=== PATIENT | male | born 1970 | race Caucasian/White ===

== ENCOUNTER 2021-11-14 21:16 | Emergency (ER) | payer OTHER, SELFPAY ==
--- NOTE | ~2021-11-14 | CT_ITS ---
EXAMINATION: Unenhanced CT the head; IV contrast enhanced CT angiography of the head and neck; delayed IV contrast-enhanced CT the head CLINICAL INFORMATION: Headache. Possible dissection vertebral artery. COMPARISON: None. TECHNIQUE: Routine unenhanced CT the head with multiple coronal and sagittal reformatted images; IV contrast enhanced CT angiography of the head and neck with multiple 3-D reformatted angiographic thick section MIPS images processed on the technologist workstation under concurrent supervision; delayed IV contrast-enhanced CT the head. Vascular stenoses are made with reference to the NASCET criteria less otherwise specified. This CT examination was performed using dose optimization techniques as appropriate, variously including the following: *Automated exposure control *Adjustment of mA and/or kV according to patient size (this includes techniques or standardized protocols for targeted exams where dose is matched to indication/reason for exam; i.e. extremities or head) *Use of iterative reconstruction technique Intravenous Contrast: Omnipaque 350 79 mL DLP: 2606 mGy-cm FINDINGS: Unenhanced and IV contrast enhanced CT of the head: A 0.7 cm hypodensity with sharply marginated contours is present inferiorly within the right lobe of the cerebellum and is suspicious for areas of chronic ischemic change. Mild diffuse commensurate prominence of ventricles and sulci is noted. Mild-moderate scattered subcortical and periventricular white matter patchy hypodensities are visualized. No intracranial hemorrhage, tumors or definitive acute infarcts visualized. The orbits and globes are normal in appearance. No significant opacification of the paranasal sinuses, mastoid air cells and middle ear cavities. No abnormal enhancement of the brain parenchyma. Normal intraluminal opacification of the major intrarenal dural sinuses. CT angiography neck: Common origin of the brachiocephalic and left common carotid arteries is noted. The carotid bulbs are patent. The vertebral arteries are codominant. No occlusions, stenoses or dissections of the cervical vertebral artery system are noted. CT angiography head: An anterior communicating artery is identified. No intracranial stenoses, occlusions or aneurysms are visualized. Mild straightening of normal cervical lordosis is noted. Mild altered level endplate osteophytosis is visualized. The visualized lung apices are clear. The thyroid is grossly normal in appearance. No prevertebral fluid collections or soft tissue inflammatory changes noted. CT/CT angio head neck IMPRESSION: Unenhanced and IV contrast-enhanced CT the head: *No acute intracranial abnormalities. *Chronic appearing lacunar infarct of the inferior right cerebellar hemisphere. *Moderate chronic microangiopathic ischemic changes. CT angiography neck: *No vascular dissections. No dissections of the cervical vertebral arteries. Patent carotid bulbs. *Incidental note made of common origin of the brachiocephalic and left common carotid arteries. CT angiography head: *No large vessel intracranial occlusions.
[2021-11-14 21:42] VITALS: BP 158/64; PULSE 72; RESP 20; TEMP 36.5; O2SAT 98; BMI 29.2
[2021-11-14 21:53] LABS: MANUAL DIFF FLAG NO
[2021-11-14 21:55] LABS: Basophils Absolute Auto 0.1 X10*3/uL (0.0-0.2); Basophils Percent Auto 0.8 % (0-2); Eosinophils Absolute Auto 0.1 X10*3/uL (0.0-0.4); Eosinophils Percent Auto 1.4 % (0-4); Hematocrit 42.4 % (42.0-52.0); Hemoglobin 14.6 g/dl (14.0-18.0); Imm Gran Abs Auto 0.01 X10*3/uL (0.00-0.03); Imm Gran Pct Auto 0.2 % (0.0-0.4); Lymphocytes Absolute Auto 2.1 X10*3/uL (1.2-4.9); Lymphocytes Percent Auto 32.7 % (20-40); Mean Corpuscular HGB Conc 34.4 g/dl (31.0-36.0); Mean Corpuscular Hemoglobin 31.1 pg (27.0-33.0); Mean Corpuscular Volume 90.2 fL (80.0-98.0); Mean Platelet Volume 9.5 fL (9.4-12.4); Monocytes Absolute Auto 0.7 X10*3/uL (0.1-1.2); Neutrophils Absolute Auto 3.5 x10*3/uL (2.0-8.3); Neutrophils Percent Auto 53.9 % (45-73); Platelet Count 177 X10*3/uL (160-400); Red Cell Distribution Width 12.4 % (11.0-16.0); White Blood Count 6.5 X10*3/uL (4.8-10.8)
[2021-11-14 22:14] LABS: Alanine Aminotransferase 15 U/L (0-40); Albumin Level 4.1 g/dL (3.5-5.0); Alkaline Phosphatase 92 U/L (39-117); Anion Gap 11 (12-20); Aspartate Amino Transferase 16 U/L (5-37); Bilirubin Total 0.3 mg/dL (0.0-1.0); Blood Urea Nitrogen 10 mg/dL (9-16); Calcium 8.7 mg/dL (8.4-10.2); Carbon Dioxide 28 mmol/L (22-29); Chloride 106 mmol/L (96-108); Creatinine Clr Calc Pharmacy 112.4; Estimated Glomerular Filt Rate > 60; Glucose Random 149 mg/dL (60-115); Potassium 3.7 mmol/L (3.3-5.1); Sodium 141 mmol/L (135-145); Total Protein 6.1 g/dL (6.5-8.0)
--- NOTE | 2021-11-14 22:41 | ED_ITS ---
HPI - Headache General Chief Complaint: Headache Stated Complaint: Headache Time Seen by Provider: 11/14/21 22:40 History of Present Illness HPI Narrative: Patient history of IBS was straining in the bathroom 3 days ago noticed headache the right side of the head since then headache is not gone away feel pain on the right side radiating to the neck no weakness no loss of vision has some floaters in the right eye after COVID last month no nausea no vomiting no weakness Related Data Previous Rx's Medication Instructions Recorded zfpoxdaezu-cnjuvjwwezzao-edfrpwpx 1 cap PO Q6H PRN headache #20 caps 11/15/21 50 mg-300 mg-40 mg capsule (Fioricet) Allergies Allergy/AdvReac Type Severity Reaction Status Date / Time chlorhexidine Allergy Rash Verified 11/14/21 21:41 doxycycline Allergy Anaphylaxis Verified 11/14/21 21:41 Review of Systems Review of Systems: Yes all other systems are reviewed and are negative [facility] Social History Social History Advance Directives: No Advance Directives Information Provided: No Physical Exam Vital Signs: Vital Signs: Last Vital Signs Temp 97.5 F 11/15/21 00:47 Pulse 54 11/15/21 00:47 Resp 16 11/15/21 00:47 BP 145/71 H 11/15/21 00:47 Pulse Ox 99 11/15/21 00:47 O2 Del Method 11/15/21 00:47 BMI result Body Mass Index 29.2 Appearance: Alert. Oriented X3. No acute distress. Eyes: PERRLA, No Nystagmus ENT: Pharynx normal. Oral Mucosa moist no temporal artery tenderness no scalp tenderness Neck: Normal inspection. Neck supple. No carotid bruit CVS: Normal heart rate and rhythm. Pulses normal. Respiratory: No respiratory distress. Equal air entry bilateral, no wheezing/rales/rhonchi Abdomen: Soft and nontender. Bowel sounds are present, no mass palpable, no CVA tenderness Skin: Skin warm and dry. Normal skin color. Normal skin turgor. Extremities: No lower extremity edema. No calf tenderness Neuro: Oriented X 3. No motor deficit. No sensory deficit.No cerebellar signs , cranial nerves II-XII intact MDM - Headache MDM Narrative Medical decision making narrative: CTA head neck negative for carotid/vertebral dissection or bleed headache likely from tension headache will give patient Fioricet and discharge patient home Differential Diagnosis Differential diagnosis: Likely migraine, tension headache and subarachnoid hemorrhage Lab Data Attestation: I reviewed the patient's lab results. Result diagrams: 11/14/21 21:49 11/14/21 21:49 Labs: Lab Results 11/14/21 11/14/21 Range/Units 21:49 21:49 WBC 6.5 (4.8-10.8) X10*3/uL RBC 4.70 (4.60-5.80) X10*6/uL Hgb 14.6 (14.0-18.0) g/dl Hct 42.4 (42.0-52.0) % MCV 90.2 (80.0-98.0) fL MCH 31.1 (27.0-33.0) pg MCHC 34.4 (31.0-36.0) g/dl RDW 12.4 (11.0-16.0) % Plt Count 177 (160-400) X10*3/uL MPV 9.5 (9.4-12.4) fL Immature Gran % (Auto) 0.2 (0.0-0.4) % Neut % (Auto) 53.9 (45-73) % Lymph % (Auto) 32.7 (20-40) % [place] % (Auto) 11.0 (2-11) % Eos % (Auto) 1.4 (0-4) % Baso % (Auto) 0.8 (0-2) % Lymph # (Auto) 2.1 (1.2-4.9) X10*3/uL [place] # (Auto) 0.7 (0.1-1.2) X10*3/uL Eos # (Auto) 0.1 (0.0-0.4) X10*3/uL Baso # (Auto) 0.1 (0.0-0.2) X10*3/uL Abs Immat Gran (auto) 0.01 (0.00-0.03) X10*3/uL Absolute Neuts (auto) 3.5 (2.0-8.3) x10*3/uL Absolute Nucleated RBC 0.000 (0.0-0.012) X10*3/uL Nucleated RBC % (auto) 0.0 (0.0-0.2) /100WBC Sodium 141 (135-145) mmol/L Potassium 3.7 (3.3-5.1) mmol/L Chloride 106 (96-108) mmol/L Carbon Dioxide 28 (22-29) mmol/L Anion Gap 11 L (12-20) BUN 10 (9-16) mg/dL Creatinine 1.04 (0.5-1.4) mg/dL Estim Creat Clear Calc 112.4 Estimated GFR > 60 Random Glucose 149 H (60-115) mg/dL Calcium 8.7 (8.4-10.2) mg/dL Total Bilirubin 0.3 (0.0-1.0) mg/dL AST 16 (5-37) U/L ALT 15 (0-40) U/L Alkaline Phosphatase 92 (39-117) U/L Total Protein 6.1 L (6.5-8.0) g/dL Albumin 4.1 (3.5-5.0) g/dL Discharge Plan Discharge Clinical Impression: Tension headache Patient Disposition: Home, Self-Care Instructions: Tension Headache (ED) Additional Instructions: Take pain medication as prescribed Follow with PCP if any concerns Prescriptions: New fjvwmmddtz-xkdokrmcuakee-tdov [Fioricet] 50-300-40 mg capsule 1 cap PO Q6H PRN (Reason: headache) Qty: 20 0RF
[2021-11-14 23:11] VITALS: BP 149/78; PULSE 58; O2SAT 98
[2021-11-15] MEDS: iohexoL 350 MG/ML 100 ML INFUS..BTL 70 ML IV (00:29)
[2021-11-15 00:47] VITALS: BP 145/71; PULSE 54; RESP 16; TEMP 36.4; O2SAT 99
[2021-11-15] MEDS: Ketorolac Tromethamine 30 MG/ML VIAL IVPUSH (01:08)
[2021-11-15] MEDS: Butalb/Acetamin/Caff 50/325/40 TABLET 1 TAB PO (01:50)
== END 2021-11-15 01:54 | disposition home or self-care (01) ==
PROVIDERS: Emergency Provider Internal Medicine; PCP Physician Assistant Medical
DX: G44.209 Tension-type headache, unspecified, not intractable (principal); Z79.899 Other long term (current) drug therapy
CPT/HCPCS: 36415; 70496; 70498; 80053; 85025; 96374; 99283; 99284; J1885; Q9967

== ENCOUNTER → 2022-05-17 14:03 | Outpatient (BNVA) | payer OTHER, BC, SELFPAY | PROVIDERS: PCP Physician Assistant Medical; Visit Provider Anesthesiology | DX: Z13.89 Encounter for screening for other disorder (principal) ==

== ENCOUNTER 2022-06-20 06:17 | Outpatient (REF) | payer OTHER, SELFPAY | END 2022-06-20 06:18 | disposition home or self-care (01) | LOC: CF 06:17 | PROVIDERS: Visit Provider Anesthesiology | DX: Z13.89 Encounter for screening for other disorder (principal) ==

== ENCOUNTER 2022-06-22 13:11 | Day surgery (SDC) | payer OTHER, SELFPAY ==
--- NOTE | ~2022-06-22 | FL_ITS ---
EXAMINATION: XR FLUOROSCOPY WITH IMAGES CLINICAL INFORMATION: L1 through L5 injections. COMPARISON: None TECHNIQUE: Fluoroscopy Supervised By: Dr. Ravindra Zheng. Fluoroscopy Time: 0.8 minutes. Cumulative Dose: 14.4 mGy-cm DAP: 3.93 Gy-cm2 Images: 8. FINDINGS: Imaging demonstrates needles and contrast about the lateral aspect of L2 through L5. FL/FL guidance in OR IMPRESSION: Intraoperative imaging for pain management procedure.
[2022-06-22 13:29] VITALS: BMI 27.3
--- NOTE | 2022-06-22 14:31 | P.HPSUR_ITS ---
Pre-Procedural Eval Section A Date of Service: 06/22/22 The patient is an INPATIENT: No Changes since office visit: Yes Changes in Medication The History & Physical has been completed within 30 days and I have reviewed it.: No Section B Chief Complaint: Spondylosis without myelopathy or radiculopathy, l Details of Present Illness: as above Relevant Family History (Specify if Yes): No Relevant Social History: None Present Medications: None Medical History: No relevant PMH History of Previous Operations: No relevant previous surgery Allergies: Allergies Allergy/AdvReac Type Severity Reaction Status Date / Time chlorhexidine Allergy Rash Verified 05/17/22 14:13 doxycycline Allergy Anaphylaxis Verified 05/17/22 14:13 Review of Systems Sugical H&P ROS: Negative: Constitution, Cardiovascular, Respiratory, Neurological, Psychiatric, Hem-Onc, Allergic/Immunologic, Gastrointestinal, Genitourinary, Musculoskeletal, Integumentary, Endocrine and Eyes/Ears/Nos e/Throat Exam Surgical H&P Exam: Normal: HEENT, Normal: Heart, Normal: Lungs, Normal: Extremities, Normal: Abdomen, Normal: Skin and Normal: Neurological Plan Diagnosis/Plan: Unchanged I have reviewed the history and physical and performed a pertinent physical examination on my patient. No changes have occurred unless specified. Time Spent With Patient Time: Total time managing care of this patient today ____ minutes.
[2022-06-22 15:10] VITALS: BP 158/62; PULSE 89; RESP 18; TEMP 36.7; O2SAT 97
--- NOTE | 2022-06-22 15:13 | P.BOP_ITS ---
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
--- NOTE | 2022-06-22 15:15 | W.PM.OPN ---
Operative Note Operative Note Date of Service: 06/22/22 Narrative: Diagnostic medial branch block bilateral L2- L3- L4- DRL5 Mr. Tran is very pleasant 52 y.o. who is suffering from lumbar spine spondylosis. He came to the OR for the diagnostic bilateral MBB L2- L3- L4- DRL5. Informed consent was explained to the patient. All questions were explained and? answered.? The patient was taken inside the operating room where he was positioned prone on the operating table.? Time-out was performed delineating correct site, side, the nature of the procedure, patient's allergy, preoperative antibiotic if needed.? All operating room staff was participating in OR time-out procedure. ? The lower back was prepped with ChloraPrep and draped with sterile utility towels.? C-arm was brought over the operating field and sq picture of L3, L4, L5 vertebra and S1 AREA were delineated on the screen.? Points of interest were delineated as connection of superior articular process of the L3, L4 and L5 vertebra bilaterally with corresponding transverse processes as well as connection of the sacral alae bilaterally with superior articular process of S1.? The projection of the point of interest to the skin were injected with the small amount of local anesthetic lidocaine 1% 1- cc.? After that 22 gauge5 inch spinal needle was driven sequentially to the points of interest in tunnel vision fashion. After needles gently contacted the bone at the point of interests the needle was injected with small amount of the contrast.? The injection of the contrast did not demonstrate any intravascular or intrathecal spread of the contrast.? After that injection of the? ropivacaine 0.5%-1cc was performed at each needle location.? Upon completion of the injections? needle was? removed and sterile Band-Aids were applied.? The? patient was taken outside of the operating room to recovery room where he recovered uneventfully.?
== END 2022-06-22 15:24 | disposition home or self-care (01) ==
PROVIDERS: PCP Physician Assistant Medical; Visit Provider Anesthesiology
PROC: (CPT 64493; principal; 2022-06-22 14:00)
DX: M47.816 Spondylosis without myelopathy or radiculopathy, lumbar region (principal); G89.4 Chronic pain syndrome; M54.50 Low back pain, unspecified; R53.83 Other fatigue; I49.9 Cardiac arrhythmia, unspecified; Z86.73 Personal history of transient ischemic attack (TIA), and cerebral infarction without residual deficits; Z88.8 Allergy status to other drugs, medicaments and biological substances
CPT/HCPCS: 64493; 64494

== ENCOUNTER → 2022-06-27 15:36 | Outpatient (BNVA) | payer OTHER, SELFPAY | PROVIDERS: PCP Physician Assistant Medical; Visit Provider Anesthesiology | DX: Z13.89 Encounter for screening for other disorder (principal) ==

== ENCOUNTER 2022-07-07 10:47 | Day surgery (SDC) | payer OTHER, SELFPAY ==
--- NOTE | ~2022-07-07 | FL_ITS ---
EXAMINATION: XR FLUOROSCOPY WITH IMAGES CLINICAL INFORMATION: Back pain. Pain management procedures/medial branch RFA. COMPARISON: Fluoroscopic spot views 06/22/2022 TECHNIQUE: Fluoroscopy Supervised By: Dr. Ravindra Zheng. Fluoroscopy Time: 1.5 minutes. Cumulative Dose: 38.7 mGy. DAP: 8.32 Gycm2. Images: 2. FINDINGS: There are needles/electrodes overlying the bilateral outer L3, L4, and L5 neural foramen. There are mild degenerative changes with vertebral spurring. FL/FL guidance in OR IMPRESSION: Fluoroscopy for pain management procedures.
--- NOTE | 2022-07-07 11:07 | W.PM.OPN ---
Operative Note Operative Note Date of Service: 07/07/22 Narrative: RFA H2-K5-M3-L4-DRL5 bilateral Informed consent was explained to the patient. All questions were explained and answered. The patient was taken inside the operating room where he was positioned prone on the operating table. Patient was not sedated, he was wide awake and able to answer the questions and respond to the commands. Time-out was performed delineating name and of the patient, correct site, side, the nature of the procedure, patient's allergy, preoperative antibiotic if needed. All operating room staff was participating in OR time-out procedure. The lower back was prepped with ChloraPrep and draped with sterile towels. C-arm was brought over the operating field and sq picture of L3, L4, L5 vertebra and S1 AREA were delineated on the screen. Point of interest were delineated as connection of superior articular process of L3, L4, L5 vertebra bilaterally with corresponding transverse processes as well as connection of the sacral alae bilaterally with superior articular process of S1 1st on the right and then on the left side. ?The projection of the point of interest to the skin were injected with the small amount of local anesthetic lidocaine 2% 1-1.5 cc. After that 18 gauge 100 mm RFA canulas? were driven to the point of interest in oblique fashion. After needles gently contacted the bone the sensory test was performed, patient reported pressure? sensation on sensory test.? After that motor tests were performed and no motor response was detected in the patients feet lower legs or thighs. After that? at the point of interests the cannulas? were injected with small amount of ropivacaine 0.5% mixed with lidocaine 1%-1cc? and also mixed with very small amount of Kenalog. 90 seconds after the injection the energy application was performed at 89 degrees Centigrade for 90 second. After first energy application the canullas were rotated 180 degrees and energy application was repeated at the same setting. . Upon completion of the energy applications canullas were removed and sterile bandaids? were applied, The? patient was taken outside of the operating room to recovery room where he recovered uneventfully.
[2022-07-07 11:08] VITALS: BMI 27.3
--- NOTE | 2022-07-07 11:08 | MHC.SHP ---
Pre-Procedural Eval Section A Date of Service: 07/07/22 The patient is an INPATIENT: No Changes since office visit: Yes Patient answered all questions The History & Physical has been completed within 30 days and I have reviewed it.: No Section B Chief Complaint: Spondylosis without myelopathy or radiculopathy, l Details of Present Illness: as above Relevant Family History (Specify if Yes): No Relevant Social History: None Present Medications: see Short Stay Collaborative assessment Medical History: No relevant PMH History of Previous Operations: No relevant previous surgery Allergies: Allergies Allergy/AdvReac Type Severity Reaction Status Date / Time chlorhexidine Allergy Rash Verified 05/17/22 14:13 doxycycline Allergy Anaphylaxis Verified 05/17/22 14:13 Review of Systems Sugical H&P ROS: Negative: Constitution, Cardiovascular, Respiratory, Neurological, Psychiatric, Hem-Onc, Allergic/Immunologic, Gastrointestinal, Genitourinary, Musculoskeletal, Integumentary, Endocrine and Eyes/Ears/Nose/Throat Exam Surgical H&P Exam: Normal: HEENT, Normal: Heart, Normal: Lungs, Normal: Extremities, Normal: Abdomen, Normal: Skin and Normal: Neurological Plan Diagnosis/Plan: Unchanged I have reviewed the history and physical and performed a pertinent physical examination on my patient. No changes have occurred unless specified. Time Spent With Patient Time: Total time managing care of this patient today ____5 minutes.
--- NOTE | 2022-07-07 11:55 | PM.OP ---
Brief Operative Note Date of Service: 07/07/22 Pre-op diagnosis: spondylosis lumbar without myelopathy or radiculopathy Post-op diagnosis: same Procedure: radiofrequency ablation of bilateral L2-L3- L4 and DRL5 medial branch nerves Surgeon: Ravindra Zheng MD Anesthesia: local Was an Tennis Camp Instructor used for this Procedure?: No Estimated blood loss (mL): 3 Condition: stable Disposition: PACU
[2022-07-07 13:20] VITALS: BP 128/78; PULSE 66; RESP 16; TEMP 36.3; O2SAT 97
== END 2022-07-07 13:44 | disposition home or self-care (01) ==
PROVIDERS: PCP Physician Assistant Medical; Visit Provider Anesthesiology
PROC: (CPT 64635; principal; 2022-07-07 12:00)
DX: M47.816 Spondylosis without myelopathy or radiculopathy, lumbar region (principal); G89.4 Chronic pain syndrome; Z86.73 Personal history of transient ischemic attack (TIA), and cerebral infarction without residual deficits; Z88.1 Allergy status to other antibiotic agents; Z88.8 Allergy status to other drugs, medicaments and biological substances
CPT/HCPCS: 64635; 64636 ×2; J2795; J3301

== ENCOUNTER 2022-12-19 15:43 | Outpatient (AMB) | payer OTHER, SELFPAY ==
--- NOTE | 2022-12-19 16:13 | AM.OFFWIN_ITS ---
Intake Vital Signs 12/19/22 16:16 BP 130/90 H Blood Pressure Location Lt brachial Position Sitting Pulse 74 Pulse Source Pulse Oximeter Pulse Oximetry (%) 97 Oxygen Delivery Method Room Air Intake Visit Reasons: EST/tongue issues Intake Note: Patient here for tongue issues, blistered and burning, loss of taste. Patient Tobacco Use Status: Former Tobacco user Allergies chlorhexidine Allergy (Verified 12/19/22 16:16) Rash doxycycline Allergy (Verified 12/19/22 16:16) Anaphylaxis Do you need a note to return to daycare/school/sports/work: No HPI EST/tongue issues HPI Details 52-year-old male presents to the office for a sick visit. A month ago he was treated for thrush. He was given clotrimazole for 14 days. 60% of his symptoms improved but they recurred. He is having numbness and burning in the tongue. [facility] Medical History (Updated 12/19/22 @ 16:41 by Joselito Kate MD) Candidiasis of mouth CVA (cerebral vascular accident) Hx of cardiac arrhythmia Hx of fatigue Surgical History (Updated 06/21/22 @ 10:43 by Mary Kay Valdivia RN) Hx of appendectomy Hx of tonsillectomy Social History Patient Tobacco Use Status: Former Tobacco user Physical Exam Vital Signs: Last Vital Signs Pulse 74 12/19/22 16:16 BP 130/90 H 12/19/22 16:16 Pulse Ox 97 12/19/22 16:16 Oxygen Delivery Method Room Air 12/19/22 16:16 HEENT Other: Oral cavity: Tongue: Large central fissure, white coating on the tongue. Dryness on the lip. Assessment & Plan Assessment & Plan (1) Candidiasis of mouth: Code(s): B37.0 - Candidal stomatitis Plan: Fluconazole for 14 days prescribed. If symptoms not improved to follow-up here. Medications: New fluconazole 100 mg PO DAILY 14 tabs 0RF Coding Level of Care Code Est Pt Level 3 (03650) Diagnoses Candidiasis of mouth B37.0
[2022-12-19 16:16] VITALS: BP 130/90; PULSE 74; O2SAT 97
== END 2022-12-19 16:59 | disposition home or self-care (01) ==
PROVIDERS: PCP Physician Assistant Medical; Visit Provider Internal Medicine
DX: B37.0 Candidal stomatitis (principal)
CPT/HCPCS: 99213